=== PATIENT | female | born 1960 | race Caucasian/White ===

== ENCOUNTER 2017-10-31 14:58 | Observation (INO) | payer MEDICAID ==
[~2017-10-31] VITALS: Ht 165.1 cm; Wt 113.4 kg
[~2017-10-31 14:58] MED LIST: AMLO2.5T; ASPI81CH43 PO; ENA2.5T; GLIP2.5T28; SIMV5TAB50; TRAM-411; [UNRECOGNIZED DRUG - CODE]
[2017-10-31 15:51] LABS: Basophils # (auto) 0.1 uL; Basophils % (auto) 1.6 % (0.0-2.0); Eosinophils # (auto) 0.1 uL; Eosinophils % (auto) 1.9 % (0.0-7.0); Hematocrit 48.4 % (36.0-46.0); Hemoglobin 16.4 g/dL (12.2-16.2); Lymphocytes # (auto) 2.3 uL; Lymphocytes % (auto) 35.1 % (10.0-50.0); Mean Corpuscular Hemoglobin 29.3 pg (28.0-32.0); Mean Corpuscular Volume 86.1 fL (80.0-100.0); Monocytes # (auto) 0.4 uL; Monocytes % (auto) 6.9 % (0.0-12.0); Neutrophils # (auto) 3.5 uL; Neutrophils % (auto) 54.5 % (37.0-80.0); Nucleated Red Blood Cells % 0.2 %; Platelet Count (auto) 309 10^3/uL (140-450); Red Blood Cells 5.62 10^6/uL (4.0-5.20); Red Cell Distribution Width 14.5 % (11.8-14.3); White Blood Cell 6.5 10^3/uL (4.4-10.8)
[2017-10-31 16:09] LABS: Albumin 3.8 g/dL (3.4-5.0); BUN/Creatinine Ratio 10.3; Bilirubin, Total 0.9 mg/dL (0.2-1.0); Calcium 9.7 mg/dL (8.5-10.1); Potassium 4.6 mmol/L (3.5-5.1); Total Protein 7.6 g/dL (6.4-8.2)
[2017-10-31] MEDS ORDERED: CLINDAMYCIN 600MG IV 50 ML IV ONE (19:45)
[2017-10-31] MEDS ORDERED: TETANUS-DIPTH-ACEL PERTUSSIS 0.5ML SYRG IM ONE (21:30)
[2017-10-31 23:04] VITALS: BP 140/82
== END 2017-10-31 23:05 | disposition home or self-care (01) | DRG 383 ==
LOC: ER 15:09 → OVERFLOW 15:10 → ER 23:05
PROVIDERS: ADMIT Family Medicine; ATTEND Family Medicine
DX: L03.116 Cellulitis of left lower limb (principal); E11.69 Type 2 diabetes mellitus with other specified complication; E78.5 Hyperlipidemia, unspecified; I10 Essential (primary) hypertension; F17.210 Nicotine dependence, cigarettes, uncomplicated; Z82.49 Family history of ischemic heart disease and other diseases of the circulatory system; Z97.0 Presence of artificial eye; Z79.82 Long term (current) use of aspirin; Z79.899 Other long term (current) drug therapy; Z23 Encounter for immunization
CPT/HCPCS: 36415; 80053; 85025; 90471; 90715; 93971; 96365; 99285; G0378; J3490

== ENCOUNTER 2018-07-07 15:58 | Emergency (ER) | payer MEDICAID ==
[~2018-07-07] VITALS: Ht 167.6 cm; Wt 95.3 kg
[~2018-07-07 15:58] MED LIST changes: -AMLO2.5T; +AMLO2.5T6
[2018-07-07 17:01] LABS: Basophils # (auto) 0 uL; Basophils % (auto) 0.6 % (0.0-2.0); Eosinophils # (auto) 0.1 uL; Eosinophils % (auto) 1.7 % (0.0-7.0); Hematocrit 45.8 % (36.0-46.0); Hemoglobin 15.8 g/dL (12.2-16.2); Lymphocytes % (auto) 29.4 % (10.0-50.0); Mean Corpuscular Hemoglobin 30.1 pg (28.0-32.0); Mean Corpuscular Hgb Conc. 34.5 g/dL (32.0-36.0); Mean Corpuscular Volume 87.3 fL (80.0-100.0); Monocytes # (auto) 0.6 uL; Monocytes % (auto) 8.5 % (0.0-12.0); Neutrophils # (auto) 4.2 uL; Neutrophils % (auto) 59.8 % (37.0-80.0); Nucleated Red Blood Cells % 0.3 %; Platelet Count (auto) 289 10^3/uL (140-450); Red Blood Cells 5.25 10^6/uL (4.0-5.20); Red Cell Distribution Width 13.7 % (11.8-14.3)
[2018-07-07 17:10] LABS: Chloride 108 mmol/L (98-107); Sodium 139 mmol/L (136-145)
[2018-07-07 17:15] LABS: Alanine Aminotransferase 19 U/L (13-56); Albumin 3.5 g/dL (3.4-5.0); Anion Gap 8 (5-15); Aspartate Aminotransferase 16 U/L (15-37); BUN/Creatinine Ratio 20.6; Bilirubin, Total 0.4 mg/dL (0.2-1.0); Blood Urea Nitrogen 26 mg/dL (7-18); Calcium 9.4 mg/dL (8.5-10.1); Carbon Dioxide 23 mmol/L (21-32); GFR African American 56 mL/min; GFR Non-African American 46 mL/min; Glucose 109 mg/dL (74-106); Total Protein 7.7 g/dL (6.4-8.2)
[2018-07-07 17:31] LABS: Alkaline Phosphatase 72 U/L (45-117)
[2018-07-07 19:01] VITALS: BP 173/85
== END 2018-07-07 20:16 | disposition left against medical advice (07) ==
LOC: ER 16:00
DX: M25.512 Pain in left shoulder (principal); R07.9 Chest pain, unspecified; Z53.21 Procedure and treatment not carried out due to patient leaving prior to being seen by health care provider
CPT/HCPCS: 36415; 73030; 80053; 84484; 85025; 93005

== ENCOUNTER 2019-02-13 20:04 | Emergency (ER) | payer MEDICAID ==
[~2019-02-13] VITALS: Ht 165.1 cm; Wt 77.6 kg
[~2019-02-13 20:04] MED LIST changes: -AMLO2.5T6; +AMLO2.5T7; -ENA2.5T; +ENAL2.5T2
[2019-02-13 20:19] VITALS: BP 162/104
[2019-02-13] MEDS ORDERED: VANCOMYCIN 1GM/250ML 250 ML IV ONE (20:45)
[2019-02-13 21:31] LABS: Basophils # (auto) 0.1 uL; Basophils % (auto) 0.7 % (0.0-2.0); Eosinophils # (auto) 0.1 uL; Eosinophils % (auto) 1.6 % (0.0-7.0); Hematocrit 47.6 % (36.0-46.0); Hemoglobin 16.1 g/dL (12.2-16.2); Lymphocytes # (auto) 0.9 uL; Mean Corpuscular Hemoglobin 29.5 pg (28.0-32.0); Mean Corpuscular Volume 86.9 fL (80.0-100.0); Monocytes # (auto) 0.5 uL; Monocytes % (auto) 6.5 % (0.0-12.0); Neutrophils # (auto) 6.3 uL; Neutrophils % (auto) 79.2 % (37.0-80.0); Nucleated Red Blood Cells % 0.1 %; Platelet Count (auto) 239 10^3/uL (140-450); Red Blood Cells 5.47 10^6/uL (4.0-5.20); Red Cell Distribution Width 13.9 % (11.8-14.3); White Blood Cell 7.9 10^3/uL (4.4-10.8)
[2019-02-13 21:43] LABS: Albumin 3.9 g/dL (3.4-5.0); BUN/Creatinine Ratio 14.7; Calcium 9.3 mg/dL (8.5-10.1); Potassium 3.9 mmol/L (3.5-5.1)
[2019-02-13 21:46] LABS: Total Protein 7.5 g/dL (6.4-8.2)
== END 2019-02-13 22:09 | disposition home or self-care (01) ==
LOC: ER 20:07
DX: L03.115 Cellulitis of right lower limb (principal); E11.9 Type 2 diabetes mellitus without complications; E78.5 Hyperlipidemia, unspecified; I10 Essential (primary) hypertension; F17.210 Nicotine dependence, cigarettes, uncomplicated; F12.90 Cannabis use, unspecified, uncomplicated
CPT/HCPCS: 36415; 80053; 85025; 96365; 99283; J3370

== ENCOUNTER 2019-03-05 17:22 | Inpatient (IN) | payer MEDICAID, MEDICARE ==
[~2019-03-05] VITALS: Ht 157.5 cm; Wt 119.3 kg
[2019-03-05] MEDS ORDERED: DEXTROSE 50% SYRINGE 50 ML IV ONE ×2 (17:28→21:29)
[2019-03-05] MEDS ORDERED: DEXTROSE (50%) 50ML SYRG IV ONE ×2 (18:00→21:45)
[2019-03-05] MEDS ORDERED: SODIUM CHLORIDE 0.9% 500 ML IV ONE (18:30)
[2019-03-05 18:39] LABS: Basophils # (auto) 0 uL; Eosinophils # (auto) 0.1 uL; Lymphocytes # (auto) 0.4 uL; Monocytes # (auto) 0.7 uL; Neutrophils # (auto) 3.1 uL; Platelet Count (auto) 228 10^3/uL (140-450)
[2019-03-05 18:45] LABS: Basophils % (auto) 0.6 % (0.0-2.0); Eosinophils % (auto) 1.4 % (0.0-7.0); Hematocrit 20.1 % (36.0-46.0); Lymphocytes % (auto) 10.1 % (10.0-50.0); Mean Corpuscular Hemoglobin 29.4 pg (28.0-32.0); Mean Corpuscular Hgb Conc. 31.9 g/dL (32.0-36.0); Mean Corpuscular Volume 92.1 fL (80.0-100.0); Monocytes % (auto) 16.2 % (0.0-12.0); Neutrophils % (auto) 71.7 % (37.0-80.0); Red Blood Cells 2.18 10^6/uL (4.0-5.20); Red Cell Distribution Width 18.4 % (11.8-14.3); White Blood Cell 4.3 10^3/uL (4.4-10.8)
[2019-03-05 18:50] LABS: Hemoglobin 6.4 g/dL (12.2-16.2)
[2019-03-05 18:54] LABS: INR 1.28 (0.9-1.15); Partial Thromboplastin Time 42.1 sec (23.64-32.05)
[2019-03-05 18:59] LABS: Albumin 2.1 g/dL (3.4-5.0); BUN/Creatinine Ratio 9.9; Calcium 7.9 mg/dL (8.5-10.1); Potassium 3.5 mmol/L (3.5-5.1)
[2019-03-05 19:04] LABS: Bilirubin, Total 0.3 mg/dL (0.2-1.0); Total Protein 6.1 g/dL (6.4-8.2)
[2019-03-05] MEDS ORDERED: cefTRIAXone 1GM/50ML D5W 50 ML IV ONE (21:15)
[2019-03-05] MEDS ORDERED: TEMAZEPAM 15 MG CAP PO PRN (21:15)
[2019-03-05] MEDS ORDERED: ACETAMINOPHEN 325 MG TAB PO PRN (21:15)
[2019-03-05] MEDS ORDERED: ONDANSETRON HCL 4 MG/2 ML VIAL IV PRN (21:15)
[2019-03-05] MEDS ORDERED: DEXTROSE (50%) 50ML SYRG IV PRN (21:15)
[2019-03-05] MEDS ORDERED: ALBUMIN 5% 250 ML IV ONE (21:15)
[2019-03-05 21:44] LABS: Hemoglobin 7.2 g/dL (12.2-16.2)
[2019-03-05] MEDS ORDERED: PANTOPRAZOLE 40 MG TAB PO SCH (22:00)
[2019-03-05] MEDS ORDERED: OCTREOTIDE ACETATE 100 MCG in SODIUM CHL 0.9% 50 ML IV ONE (22:00)
[2019-03-05] MEDS ORDERED: LORazepam 2MG/ML-1ML VIAL IV ONE (22:30)
[2019-03-05] MEDS ORDERED: OCTREOTIDE ACETATE 100 MCG/ML VL ONE (22:34)
[2019-03-05] MEDS ORDERED: OCTREOTIDE ACETATE 500 MCG/ML VL ONE (22:34)
[2019-03-05] MEDS: DEXTROSE 10% 1,000 ML IV SCH (23:18)
[2019-03-05] MEDS: OCTREOTIDE ACETATE 500 MCG in SODIUM CHL 0.9% 99 ML IV SCH (23:34)
[2019-03-06] VITALS (18 sets, daily range): BP systolic 65–124; BP diastolic 31–89
[2019-03-06] MEDS: ACCU-CHEK COMFORT CURVE STRIP VI SCH ×4 (00:14→18:25)
[2019-03-06] MEDS: ATORVASTATIN 20 MG TAB PO SCH ×2 (00:23→22:38)
[2019-03-06] MEDS ORDERED: LORazepam 2MG/ML-1ML VIAL IV ONE (03:45)
[2019-03-06] MEDS ORDERED: ALBUMIN 5% 250 ML IV ONE (04:15)
[2019-03-06 05:38] LABS: Hematocrit 29.3 % (36.0-46.0); Hemoglobin 9.7 g/dL (12.2-16.2); Mean Corpuscular Hemoglobin 29.8 pg (28.0-32.0); Mean Corpuscular Hgb Conc. 33.2 g/dL (32.0-36.0); Mean Corpuscular Volume 89.8 fL (80.0-100.0); Platelet Count (auto) 224 10^3/uL (140-450); Red Blood Cells 3.26 10^6/uL (4.0-5.20); Red Cell Distribution Width 16.7 % (11.8-14.3); White Blood Cell 5.5 10^3/uL (4.4-10.8)
[2019-03-06 05:44] LABS: Basophils % (manual) 0 (0.0-2.0); Blast Cells 0; Eosinophils % (manual) 0 (0-7); Myelocytes % 0; Promyelocytes % 0; Reactive Lymphocytes 0
[2019-03-06] MEDS: InsuLIN REG 1unit/0.01ml Soln (100units/ml) SC SCH ×4 (06:00→18:00)
[2019-03-06 06:06] LABS: BUN/Creatinine Ratio 11.6; Calcium 7.9 mg/dL (8.5-10.1); Potassium 4.2 mmol/L (3.5-5.1)
[2019-03-06 06:55] LABS: Band Neutrophils % (manual) 16; Lymphocytes % (manual) 7 (10.0-50.0); Metamyelocytes % 2; Monocytes % (manual) 14 (0-12)
[2019-03-06] MEDS: OCTREOTIDE ACETATE 500 MCG in SODIUM CHL 0.9% 99 ML IV SCH (08:10)
[2019-03-06] MEDS: cefTRIAXone 1GM/50ML D5W 50 ML IV SCH (09:17)
[2019-03-06] MEDS ORDERED: PANTOPRAZOLE 40 MG TAB PO SCH (10:00)
[2019-03-06 11:03] LABS: Hematocrit 30.3 % (36.0-46.0); Hemoglobin 10.1 g/dL (12.2-16.2)
[2019-03-06] MEDS ORDERED: GOLYTELY 4L KIT PO ONE (11:30)
[2019-03-06] MEDS ORDERED: CARVEDILOL 3.125 MG TAB PO ONE (12:15)
[2019-03-06] MEDS ORDERED: FUROSEMIDE 20 MG/2 ML VIAL IV ONE (12:15)
[2019-03-06] MEDS ORDERED: B-CO1TAB44 PO (13:34)
[2019-03-06] MEDS ORDERED: IPRAAER6 (13:34)
[2019-03-06] MEDS ORDERED: HYDR50TA15 PO (13:34)
[2019-03-06] MEDS ORDERED: PANT40TA2 PO (13:34)
[2019-03-06] MEDS ORDERED: INSUINJ37 (13:34)
[2019-03-06] MEDS ORDERED: RANI-226 PO (13:34)
[2019-03-06] MEDS ORDERED: UBIQ1CAP PO (13:34)
[2019-03-06] MEDS ORDERED: PAR20T PO (13:34)
[2019-03-06] MEDS ORDERED: FENT25DI2 TD (13:34)
[2019-03-06] MEDS ORDERED: FLUT50SP (13:34)
[2019-03-06] MEDS ORDERED: FURO40TA4 PO (13:34)
[2019-03-06] MEDS ORDERED: PREG50CA PO (13:34)
[2019-03-06] MEDS ORDERED: INSU100I4 (13:34)
[2019-03-06] MEDS ORDERED: PREGABALIN 25 MG CAP PO ONE (14:00)
[2019-03-06 14:22] LABS: INR 1.2 (0.9-1.15)
[2019-03-06] MEDS ORDERED: HYDROcodone-ACET 5/325MG TAB ONE (14:29)
[2019-03-06] MEDS: DEXTROSE 10% 1,000 ML IV SCH (14:40)
--- NOTE | 2019-03-06 15:23 | NUR ---
PATIENT ARRIVED ON UNIT PATIENT ALERT AND ORIENTED TO SELF AND SITUATION. WITH PERIODS OF CONFUSION. DAUGHTER AND GRANDDAUGHTER AT BEDSIDE. ORIENTED PATIENT TO STAFF, UNIT, CALL LIGHT POC AND VISITING HOURS. PATIENT VERBALIZED UNDERSTANDING WILL CONTINUE TO REORIENT. BED IN LOWEST LOCKED POSITION BED ALARM MOLD PRESSER LIGHT WITHIN REACH, SITTER AT BEDSIDE. PATIENT DENIES ANY PAIN SOB OR ANY DISTRESS AT THIS TIME. WILL CONTINUE TO MONITOR
--- NOTE | 2019-03-06 15:30 | NUR ---
DNR FORM WILL BROUGHT IN TOMORROW BY FAMILY GRANDDAUGHTER PROVIDED POWER OF HOSPICE VOLUNTEER COORDINATOR FORMS. DNR FORMS WILL BE BROUGHT IN TOMORROW. FORMS IN CHART
[2019-03-06] MEDS: FUROSEMIDE 20 MG/2 ML VIAL IV SCH (18:00)
--- NOTE | 2019-03-06 18:00 | NUR ---
LASIX HELD PATIENT IS ANURIC
[2019-03-06] MEDS: ALBUTEROL SULF 2.5 MG/0.5ML(0.5%) NEB SOLN NEB PRN (18:12)
[2019-03-06] MEDS: CARVEDILOL 3.125 MG TAB PO SCH (22:00)
--- NOTE | 2019-03-06 23:38 | NUR ---
Received call from Daniela/ grand de oliveira after password verified. Daniela requested to have her included in the NOK. Name and telephone provided for reference. Will continue to monitor.
[2019-03-07] VITALS (7 sets, daily range): BP systolic 110–131; BP diastolic 48–86
[2019-03-07] MEDS: ACCU-CHEK COMFORT CURVE STRIP VI SCH ×4 (00:05→18:00)
[2019-03-07] MEDS: InsuLIN REG 1unit/0.01ml Soln (100units/ml) SC SCH ×4 (00:05→18:56)
--- NOTE | 2019-03-07 04:24 | NUR ---
Patient dangling legs at the side of the bed, complained of shortness of breath. Pt with O2 at 5lpm saturating at 100%. Pt refused to have O2 titrated in a lower setting. Paged RT for PRN breathing tx.
[2019-03-07] MEDS: ALBUTEROL SULF 2.5 MG/0.5ML(0.5%) NEB SOLN NEB PRN ×2 (04:31→16:16)
[2019-03-07] MEDS: FUROSEMIDE 20 MG/2 ML VIAL IV SCH ×2 (06:00→18:00)
[2019-03-07] MEDS ORDERED: GOLYTELY 4L KIT PO ONE (06:00)
--- NOTE | 2019-03-07 06:29 | NUR ---
Paged Dr. Gomez, awaiting call back.
--- NOTE | 2019-03-07 06:53 | NUR ---
Called Pre Op/ [facility] and informed about the [facility]. Per Seda, will info Dr. Gomez if he calls back.
--- NOTE | 2019-03-07 07:20 | NUR ---
PT. ASSESSED THIS MORNING, PT. HAD PRN. TX. AT 0402. PT. IS AWAKE AND ALERT, SITTING UP AT THE EDGE OF THE BED. PATIENT REGISTRATION SUPERVISOR HELPING PT. DRINK SOME WATER. PT. STATES TX. NOT NEEDED AT THIS TIME SHE ALREADY HAD ONE A COUPLE OF HOURS AGO. HR=87,RR=20,SP02=99% ON 6LPM NC. NO TX. GIVEN, NO RESP. DISTRESS NOTED AT THIS TIME. PT. IS AWARE SHE MAY CALL IF NEEDED.
--- NOTE | 2019-03-07 07:30 | NUR ---
CARDIOLOGY PAGED, AWAITING RESPONSE
[2019-03-07] MEDS ORDERED: fentaNYL CITRATE 100 MCG/2 ML VL ONE (08:20)
[2019-03-07] MEDS ORDERED: SODIUM CHLORIDE LOCK 10 ML ONE (08:20)
[2019-03-07] MEDS ORDERED: MIDAZOLAM HCL 5 MG/ML-1ML VIAL ONE (08:20)
[2019-03-07] MEDS ORDERED: diphenhdrAMINE HCL 50 MG/1 ML VL ONE (08:20)
--- NOTE | 2019-03-07 08:40 | NUR ---
CARDIOLOGY RESPONDED PER DR OROPEZA, HE WILL READ THE ECHO AND AFTER THAT IS CLEARED, PATIENT IS CLEARED CARDIOLOGY FISCHER FOR COLONOSCOPY.
[2019-03-07 09:36] LABS: Basophils # (auto) 0 uL; Basophils % (auto) 0.6 % (0.0-2.0); Eosinophils # (auto) 0.1 uL; Eosinophils % (auto) 1.5 % (0.0-7.0); Hematocrit 28.3 % (36.0-46.0); Hemoglobin 9.2 g/dL (12.2-16.2); Lymphocytes # (auto) 0.6 uL; Lymphocytes % (auto) 10.2 % (10.0-50.0); Mean Corpuscular Hemoglobin 29.2 pg (28.0-32.0); Mean Corpuscular Hgb Conc. 32.5 g/dL (32.0-36.0); Mean Corpuscular Volume 89.9 fL (80.0-100.0); Monocytes % (auto) 16.5 % (0.0-12.0); Neutrophils # (auto) 4.1 uL; Neutrophils % (auto) 71.2 % (37.0-80.0); Platelet Count (auto) 233 10^3/uL (140-450); Red Blood Cells 3.15 10^6/uL (4.0-5.20); Red Cell Distribution Width 17.7 % (11.8-14.3); White Blood Cell 5.8 10^3/uL (4.4-10.8)
[2019-03-07 09:53] LABS: Albumin 2.6 g/dL (3.4-5.0); BUN/Creatinine Ratio 10.8; Potassium 4.5 mmol/L (3.5-5.1)
[2019-03-07 09:55] LABS: Bilirubin, Total 0.5 mg/dL (0.2-1.0); Total Protein 6.9 g/dL (6.4-8.2)
[2019-03-07] MEDS: CARVEDILOL 3.125 MG TAB PO SCH ×2 (10:00→21:37)
[2019-03-07] MEDS: PREGABALIN 25 MG CAP PO SCH (10:29)
[2019-03-07] MEDS: DEXTROSE 10% 1,000 ML IV SCH (10:29)
[2019-03-07] MEDS: cefTRIAXone 1GM/50ML D5W 50 ML IV SCH (10:29)
--- NOTE | 2019-03-07 10:34 | NUR ---
JOSE LAM TO GIVE PER CARDIOLOGY.
--- NOTE | 2019-03-07 10:37 | NUR ---
HALF OF GOLYTELY CONSUMED. PATIENT CONTINUES TO HAVE DARK STOOL
--- NOTE | 2019-03-07 11:38 | NUR ---
[facility] CONSULTED
--- NOTE | 2019-03-07 11:45 | NUR ---
Nutrition Assessment Notes please see attached link for complete assessment Est. Needs based on AdBW (84 kg): 4592-3425 kcal (17-20 kcal/kgAdBW),100-117 gms pro (1.2-1.4 gms/kgAdBW r/t elev HD severe hypoalb). Will continue to monitor pertinent labs and reassess nutrient need prn Addendum: 03/07/19 at [address] Amended: Links added.
--- NOTE | 2019-03-07 14:07 | NUR ---
Assessment and Consult Pt is a 76 yr old alert and oriented female. SS consult put in because pt has home health services. Prior to admit, pt lived with her daughter, Danika, who is her emergency contact, her number is on file. In the home, pt uses a w/c or walker, 02, and shower chair. Pt is on dialysis at [facility]. Pt stated that she came into the hospital with lots of pain and was in severe pain through out the assessment. Pt stated that prior to admit, pt was on hospice, with a company that just changed their name and that she wants to go back on hospice when she leaves the hospital. Pt is accepting of her condition and states that she is dealing with her emotions well. Pt receives income and has a DNR order. Pt is not sure how she will be transported home. Pt plans to resume hospice services upon d/c. Addendum: 03/07/19 at 1422 by CAESAR MATTHEWS Amended: Links added.
--- NOTE | 2019-03-07 17:13 | NUR ---
Discharge planning per consult, patient has orders to resume hospice with [facility] upon discharge. Placed a call to son Davidson Ni [phone] (POA) Granddaughter Daniela [phone] and he advised he would like to continue services with [facility] on discharge. Referral sent to [facility]. Resumption pending. If patient is discharged over the weekend, please call [facility] at [phone] for acceptance and transportation assistance. Called [facility] spoke with Kenya S[employer] distribution executive to advise of dc plan. Nurse Peralta was advised. Addendum: 03/07/19 at 1736 by KRISTA RIDER Please call Inga from [facility] directly at [phone] when the patient is ready to discharge. They will accept patient back onto services and assist with transportation.
[2019-03-07] MEDS ORDERED: SODIUM CHL 0.9% 1000 ML BAG XX ONE (17:30)
--- NOTE | 2019-03-07 19:39 | NUR ---
Opening shift note Patient in bed with dialysis nurse at bedside. Dialysis ongoing, patient tolerating well. Pt's respiration even and unlabored, no noted pain and discomfort at this time. Will continue to monitor.
--- NOTE | 2019-03-07 19:40 | NUR ---
PT ASSESSED, [place] TX NOT INDICATED AT THIS TIME. NO SOB. PT IS RECEIVING DIALYSIS. RN AT BEDSIDE.
[2019-03-07] MEDS ORDERED: EPOETIN ALFA 4,000 UNIT/ML VL SC ONE (21:00)
[2019-03-07] MEDS: ATORVASTATIN 20 MG TAB PO SCH (21:38)
--- NOTE | 2019-03-07 23:23 | NUR ---
Received call from lab, patient positive for MRSA of the nares. Charge nurse, Juan C, made aware.
[2019-03-08] MEDS: DEXTROSE 10% 1,000 ML IV SCH
[2019-03-08] MEDS: ACCU-CHEK COMFORT CURVE STRIP VI SCH ×2 (00:29→06:01)
[2019-03-08 04:59] VITALS: BP 106/45
[2019-03-08] MEDS: FUROSEMIDE 20 MG/2 ML VIAL IV SCH (05:37)
[2019-03-08] MEDS: InsuLIN REG 1unit/0.01ml Soln (100units/ml) SC SCH ×2 (06:00)
[2019-03-08 06:25] LABS: Basophils # (auto) 0 uL; Basophils % (auto) 0.5 % (0.0-2.0); Eosinophils # (auto) 0.1 uL; Eosinophils % (auto) 1.8 % (0.0-7.0); Hematocrit 27.3 % (36.0-46.0); Hemoglobin 9.1 g/dL (12.2-16.2); Lymphocytes # (auto) 0.6 uL; Lymphocytes % (auto) 9.6 % (10.0-50.0); Mean Corpuscular Hemoglobin 29.9 pg (28.0-32.0); Mean Corpuscular Hgb Conc. 33.2 g/dL (32.0-36.0); Mean Corpuscular Volume 90.2 fL (80.0-100.0); Monocytes % (auto) 16.6 % (0.0-12.0); Neutrophils # (auto) 4.2 uL; Neutrophils % (auto) 71.5 % (37.0-80.0); Platelet Count (auto) 213 10^3/uL (140-450); Red Blood Cells 3.03 10^6/uL (4.0-5.20); Red Cell Distribution Width 17.6 % (11.8-14.3); White Blood Cell 5.8 10^3/uL (4.4-10.8)
[2019-03-08 06:57] LABS: Albumin 2.5 g/dL (3.4-5.0); BUN/Creatinine Ratio 7.9; Bilirubin, Total 0.4 mg/dL (0.2-1.0); Calcium 8.1 mg/dL (8.5-10.1); Phosphorus 3.5 mg/dL (2.5-4.90); Potassium 3.6 mmol/L (3.5-5.1); Total Protein 6.7 g/dL (6.4-8.2); Uric Acid 2.6 mg/dL (2.6-6.0)
--- NOTE | 2019-03-08 08:37 | NUR ---
Respiratory note: ASSESSED PT FOR PRN TX PT WAS AWAKE AND ALERT, NO RESP DISTRESS NOTED WITH SITTER AT BEDSIDE. HR 75, RR 18, SPO2 100% ON 5L NC WITH A BUBBLE HUMIDIFIER. BS ARE CLEAR, NO INDICATION FOR TX AT THIS TIME. TITRATED FIO2 TO 3L.
[2019-03-08 09:13] VITALS: BP 109/49
[2019-03-08] MEDS: CARVEDILOL 3.125 MG TAB PO SCH (10:20)
[2019-03-08] MEDS: PREGABALIN 25 MG CAP PO SCH (10:21)
[2019-03-08] MEDS: cefTRIAXone 1GM/50ML D5W 50 ML IV SCH (10:23)
--- NOTE | 2019-03-08 10:23 | NUR ---
PT NOTED TO BE RESTLESS, TALKATIVE. SITTER PRESENT. UP IN CHAIR. INSTRUCTION TO BOTH PT AND SITTER TO TAKE PRECAUTIONS WITH FEMORAL CENTRAL LINE. SITE ASSESSED AND FOUND BENIGN. THEN FAMILY MEMBERS VISIT AND STATE THAT THEY WHERE INTRUCTED TO COME IN TODAY AT 0900 TO MEET WITH THE DOCTOR. DR. MATHEWS MADE AWARE WHEN FOUND ROUNDING ON CENTRAL TELE STATION. CHART REVIEWED. NO REASON FOR NPO STATUS. REVIEWED WITH GEOLOGICAL SAMPLE TESTER. MEAL ORDERED.
--- NOTE | 2019-03-08 10:58 | NUR ---
ROUNDS. SPEAKS WITH FAMILY. EXPLAINS HOSPICE CARE. REVIEWS PT IMPROVEMENT. ORDERS DC TODAY ON HOSPICE. CALLED [facility] NUMBER PROVIDED BY RAILWAY STATION MANAGER [phone]. NO ANSWER. MESSAGE LEFT.
--- NOTE | 2019-03-08 12:50 | NUR ---
PREPARING PT FOR DC HOME. CENTRAL LINE TO LEFT GROIN ASSESSED FOR NEED TO DC PRIOR TO DISCHARGE.
[2019-03-08 13:25] VITALS: BP 109/49
[2019-03-08 13:51] VITALS: BP 111/65
--- NOTE | 2019-03-08 14:00 | NUR ---
FEMORAL CENTRAL LINE REMOVED. PRESSURE HELD FOR 12 MIN. SITE STABLE. GAUZE AND PAPER DRESSING APPLIED. HAS LIQUID BM. PROOF COINS INSPECTOR GIVES PERICARE CHANGE LINEN. PREP FOR DC HOME.
--- NOTE | 2019-03-08 14:45 | NUR ---
TRANSPORT GIVEN REPORT. PT DC HOME WITH FAMILY PRESENT VIA [facility]
[2019-03-10 11:13] LABS: Hepatitis A Ab IgM Negative; Hepatitis B Core IgM Negative
[2019-03-10 11:14] LABS: Hepatitis B Surface Antigen Negative (Negative); Hepatitis C Antibody Negative (Negative)
== END 2019-03-08 15:40 | disposition hospice, home (50) | DRG 377 ==
LOC: EDUNIT# 17:22 → ER 17:44 → TELE 17:45 → TELE-WESTW 03-06 15:30
PROVIDERS: ADMIT Nurse Practitioner; ATTEND Family Medicine
PROC: 30233N1 Transfusion of Nonautologous Red Blood Cells into Peripheral Vein, Percutaneous Approach (ICD-10-PCS; 2019-03-05)
PROC: 06HY33Z Insertion of Infusion Device into Lower Vein, Percutaneous Approach (ICD-10-PCS; 2019-03-05)
PROC: 30233K1 Transfusion of Nonautologous Frozen Plasma into Peripheral Vein, Percutaneous Approach (ICD-10-PCS; 2019-03-06)
PROC: 5A1D70Z Performance of Urinary Filtration, Intermittent, Less than 6 Hours Per Day (ICD-10-PCS; principal; 2019-03-07)
DX: K92.2 Gastrointestinal hemorrhage, unspecified (principal); I21.A1 Myocardial infarction type 2; G93.41 Metabolic encephalopathy; J18.9 Pneumonia, unspecified organism; I50.43 Acute on chronic combined systolic (congestive) and diastolic (congestive) heart failure; N18.6 End stage renal disease; D68.9 Coagulation defect, unspecified; I13.2 Hypertensive heart and chronic kidney disease with heart failure and with stage 5 chronic kidney disease, or end stage renal disease; J91.8 Pleural effusion in other conditions classified elsewhere; E11.649 Type 2 diabetes mellitus with hypoglycemia without coma; D64.9 Anemia, unspecified; E11.22 Type 2 diabetes mellitus with diabetic chronic kidney disease; E78.5 Hyperlipidemia, unspecified; E11.65 Type 2 diabetes mellitus with hyperglycemia; E78.00 Pure hypercholesterolemia, unspecified; J44.9 Chronic obstructive pulmonary disease, unspecified; R09.02 Hypoxemia; Z51.5 Encounter for palliative care; Z66 Do not resuscitate; F17.210 Nicotine dependence, cigarettes, uncomplicated; I48.91 Unspecified atrial fibrillation; I50.9 Heart failure, unspecified; Z80.0 Family history of malignant neoplasm of digestive organs; Z88.0 Allergy status to penicillin; Z88.5 Allergy status to narcotic agent; Z79.01 Long term (current) use of anticoagulants; Z99.2 Dependence on renal dialysis; Z88.8 Allergy status to other drugs, medicaments and biological substances
CPT/HCPCS: 36415; 70450; 71045; 72170; 74176; 76775; 80048; 80053; 80074; 82270; 82306; 82550; 82962; 83605; 83735; 83880; 84100; 84443; 84484; 84550; 85007; 85014; 85018; 85025; 85027; 85610; 85730; 86850; 86900; 86901; 86920; 87040; 87081; 90935; 93005; 93306; 94640; G0378; J0696; J1642; J1815; J2250

== ENCOUNTER 2021-01-13 10:01 | Emergency (ER) | payer MEDICAID ==
[~2021-01-13] VITALS: Ht 165.1 cm; Wt 83.9 kg
[~2021-01-13 10:01] MED LIST changes: +AMLO-483; -AMLO2.5T7; +B-CO1TAB44 PO; +ENAL2.5T11; -ENAL2.5T2; +FENT25DI2 TD; +FLUT50SP; +FURO40TA4 PO; +HYDR50TA15 PO; +INSU100I4; +INSUINJ37; +IPRAAER6; +PANT40TA2 PO; +PAR20T PO; +PREG50CA PO; +RANI-226 PO; +UBIQ1CAP PO
[2021-01-13 10:02] VITALS: BP 128/84
[2021-01-13 10:46] LABS: Basophils # (auto) 0 10 ^3/uL (0-0.2); Basophils % (auto) 0.9 % (0.0-2.0); Eosinophils # (auto) 0.1 10 ^3/uL (0-0.8); Eosinophils % (auto) 2.1 % (0.0-7.0); Hematocrit 42.4 % (36.0-46.0); Hemoglobin 14.2 g/dL (12.2-16.2); Lymphocytes # (auto) 1.1 10 ^3/uL (0.4-5.4); Mean Corpuscular Hemoglobin 29.5 pg (28.0-32.0); Mean Corpuscular Hgb Conc. 33.5 g/dL (32.0-36.0); Mean Corpuscular Volume 88.2 fL (80.0-100.0); Monocytes # (auto) 0.5 10 ^3/uL (0-1.3); Monocytes % (auto) 10.6 % (0.0-12.0); Neutrophils # (auto) 3.3 10 ^3/uL (1.6-8.6); Neutrophils % (auto) 64.4 % (37.0-80.0); Nucleated Red Blood Cells % 0.1 %; Red Blood Cells 4.81 10^6/uL (4.0-5.20); Red Cell Distribution Width 13.8 % (11.8-14.3); White Blood Cell 5.1 10^3/uL (4.4-10.8)
[2021-01-13 10:56] LABS: Albumin 3.5 g/dL (3.4-5.0); Calcium 9.8 mg/dL (8.5-10.1); Potassium 3.9 mmol/L (3.5-5.1)
[2021-01-13 11:02] LABS: BUN/Creatinine Ratio 21.1; Bilirubin, Total 0.7 mg/dL (0.2-1.0); Total Protein 7.4 g/dL (6.4-8.2)
[2021-01-13] MEDS ORDERED: cefTRIAXone W LIDOCAINE 1 GM IM IM ONE (12:00)
== END 2021-01-13 21:02 | disposition left against medical advice (07) ==
LOC: ER 10:01
DX: L03.115 Cellulitis of right lower limb (principal); E11.9 Type 2 diabetes mellitus without complications; E78.5 Hyperlipidemia, unspecified; I10 Essential (primary) hypertension; F12.10 Cannabis abuse, uncomplicated; F17.200 Nicotine dependence, unspecified, uncomplicated; Z79.4 Long term (current) use of insulin; Z79.82 Long term (current) use of aspirin; Z88.6 Allergy status to analgesic agent; Z88.0 Allergy status to penicillin
CPT/HCPCS: 36415; 80053; 85025; 99283; J0696

== ENCOUNTER 2022-10-20 10:59 | Emergency (ER) | payer MEDICAID ==
[~2022-10-20] VITALS: Ht 165.1 cm; Wt 88.6 kg
[~2022-10-20 10:59] MED LIST changes: -AMLO-483; +AMLO1TAB21; -GLIP2.5T28; +GLIP2.5T9; +HYDR-4297 PO; -HYDR50TA15 PO; +SIMV5TAB14; -SIMV5TAB50
[2022-10-20] MEDS ORDERED: VANCOMYCIN HCL 1000 MG VL IR ONE (11:45)
[2022-10-20 12:16] LABS: Basophils # (auto) 0 10 ^3/uL (0-0.2); Basophils % (auto) 0.6 % (0.0-2.0); Eosinophils # (auto) 0.3 10 ^3/uL (0-0.8); Eosinophils % (auto) 6.5 % (0.0-7.0); Hematocrit 40.4 % (36.0-46.0); Hemoglobin 13.4 g/dL (12.2-16.2); Lymphocytes # (auto) 1.6 10 ^3/uL (0.4-5.4); Lymphocytes % (auto) 31.3 % (10.0-50.0); Mean Corpuscular Hemoglobin 29.4 pg (28.0-32.0); Mean Corpuscular Hgb Conc. 33.2 g/dL (32.0-36.0); Mean Corpuscular Volume 88.7 fL (80.0-100.0); Monocytes # (auto) 0.6 10 ^3/uL (0-1.3); Monocytes % (auto) 11.9 % (0.0-12.0); Neutrophils # (auto) 2.6 10 ^3/uL (1.6-8.6); Neutrophils % (auto) 49.7 % (37.0-80.0); Nucleated Red Blood Cells % 0.1 %; Red Blood Cells 4.55 10^6/uL (4.0-5.20); Red Cell Distribution Width 14.4 % (11.8-14.3); White Blood Cell 5.2 10^3/uL (4.4-10.8)
[2022-10-20 12:29] LABS: Urine Bacteria FEW /hpf (None Seen); Urine Blood Negative /uL (Negative); Urine Specific Gravity 1.023 (1.001-1.035); Urine WBC 3 /hpf (0 - 5)
[2022-10-20 12:40] LABS: Albumin 3.7 g/dL (3.4-5.0); Calcium 9.3 mg/dL (8.5-10.1); Potassium 4.8 mmol/L (3.5-5.1)
[2022-10-20 12:43] LABS: BUN/Creatinine Ratio 13.9 (10.0-20.0); Total Protein 7.2 g/dL (6.4-8.2)
[2022-10-20] MEDS ORDERED: CLIN150C PO (13:44)
[2022-10-20 17:18] VITALS: BP 135/74
== END 2022-10-20 17:20 | disposition home or self-care (01) ==
LOC: ER 10:59
DX: L03.115 Cellulitis of right lower limb (principal); N39.0 Urinary tract infection, site not specified; F12.10 Cannabis abuse, uncomplicated; E11.22 Type 2 diabetes mellitus with diabetic chronic kidney disease; I12.9 Hypertensive chronic kidney disease with stage 1 through stage 4 chronic kidney disease, or unspecified chronic kidney disease; N18.9 Chronic kidney disease, unspecified; Z88.0 Allergy status to penicillin; Z87.891 Personal history of nicotine dependence; Z88.6 Allergy status to analgesic agent
CPT/HCPCS: 36415; 80053; 81001; 85025; 85652

== ENCOUNTER 2023-01-30 09:19 | Emergency (ER) | payer MEDICAID ==
[~2023-01-30] VITALS: Ht 165.1 cm; Wt 94.8 kg
[~2023-01-30 09:19] MED LIST changes: +CLIN150C PO
[2023-01-30 09:51] VITALS: BP 143/64; PULSE 71; RESP 20; TEMP 97; O2SAT 97
[2023-01-30] MEDS ORDERED: PIPERACILLIN-TAZOB 3.375GM 100 ML IV ONE (11:00)
[2023-01-30] MEDS ORDERED: VANCOMYCIN 1GM/250ML 250 ML IV ONE (11:15)
[2023-01-30] MEDS: VANCOMYCIN PER PHARMACY 0 MG IV SCH ×2 (11:17→16:19)
[2023-01-30 11:22] LABS: Basophils # (auto) 0 10 ^3/uL (0-0.2); Eosinophils # (auto) 0.3 10 ^3/uL (0-0.8); Eosinophils % (auto) 6.8 % (0.0-7.0); Hematocrit 40.6 % (36.0-46.0); Hemoglobin 13.6 g/dL (12.2-16.2); Lymphocytes # (auto) 1.2 10 ^3/uL (0.4-5.4); Lymphocytes % (auto) 27.2 % (10.0-50.0); Mean Corpuscular Hemoglobin 29.3 pg (28.0-32.0); Mean Corpuscular Hgb Conc. 33.4 g/dL (32.0-36.0); Mean Corpuscular Volume 87.8 fL (80.0-100.0); Monocytes # (auto) 0.5 10 ^3/uL (0-1.3); Monocytes % (auto) 11.3 % (0.0-12.0); Neutrophils # (auto) 2.4 10 ^3/uL (1.6-8.6); Neutrophils % (auto) 53.7 % (37.0-80.0); Nucleated Red Blood Cells % 0.1 %; Red Blood Cells 4.62 10^6/uL (4.0-5.20); Red Cell Distribution Width 14.4 % (11.8-14.3); White Blood Cell 4.5 10^3/uL (4.4-10.8)
[2023-01-30 11:57] LABS: Alanine Aminotransferase 16 U/L (7-40); Albumin 4.3 g/dL (3.2-4.8); Alkaline Phosphatase 58 U/L (46-116); Anion Gap 5 (5-15); Aspartate Aminotransferase 19 U/L (13-40); BUN/Creatinine Ratio 15.1 (10.0-20.0); Bilirubin, Total 0.4 mg/dL (0.2-1.0); Blood Urea Nitrogen 34 mg/dL (9-23); Calcium 9.9 mg/dL (8.7-10.4); Carbon Dioxide 24 mmol/L (20-30); Chloride 108 mmol/L (98-107); Glucose 78 mg/dL (74-106); Potassium 4.6 mmol/L (3.5-5.1); Sodium 137 mmol/L (136-145); Total Protein 6.9 g/dL (5.7-8.2)
[2023-01-30] MEDS ORDERED: CEPH500T PO (17:18)
== END 2023-01-30 17:41 | disposition home or self-care (01) ==
LOC: ER 09:19
DX: L03.115 Cellulitis of right lower limb (principal); I12.9 Hypertensive chronic kidney disease with stage 1 through stage 4 chronic kidney disease, or unspecified chronic kidney disease; E11.22 Type 2 diabetes mellitus with diabetic chronic kidney disease; N18.9 Chronic kidney disease, unspecified; E78.5 Hyperlipidemia, unspecified; Z90.89 Acquired absence of other organs; Z87.891 Personal history of nicotine dependence; Z79.82 Long term (current) use of aspirin; Z79.4 Long term (current) use of insulin; Z79.899 Other long term (current) drug therapy; Z88.0 Allergy status to penicillin; Z88.8 Allergy status to other drugs, medicaments and biological substances
CPT/HCPCS: 36415; 80053; 85025; 96365; 96366; 96368; 99284; J2543; J3370